=== PATIENT | male | born 1990 | race Caucasian/White ===

== ENCOUNTER 2018-06-22 16:28 | Emergency (ER) | payer BC ==
--- NOTE | 2018-06-22 16:51 | EDM.PDOC ---
ED HPI GENERAL MEDICAL PROBLEM - General Chief Complaint: Chest Pain Stated Complaint: CHEST PAIN Time Seen by Provider: 06/22/18 16:35 Source of Information: Reports: Patient, Family History Limitations: Reports: No Limitations - History of Present Illness INITIAL COMMENTS - FREE TEXT/NARRATIVE: 28 y.o.w.m - smoker- came to the ed because of SSCP, same he had in the past. His ESS was neg in the past. 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 No N/V/D no diaphoresis. 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 No other acute med issues. BP 151/71 RR 17 Pulse ox 97% on RA Pulse 71 Temp 36.6 Onset Date: 06/22/18 Onset Time: 06:00 Duration: Hour(s): Location: Reports: Face Quality: Reports: Ache, Burning Severity: Mild Improves with: Reports: Rest Worsens with: Reports: Movement Context: Reports: Other Associated Symptoms: Reports: Chest Pain, Cough Treatments BIOLOGICAL CHEMIST: Reports: Aspirin (2 full ASAs) bilateral chest Pain Score (Numeric/FACES): 9 - Related Data Allergies Allergy/AdvReac Type Severity Reaction Status Date / Time latex Allergy Hives Verified 04/04/18 19:06 Home Meds: Home Meds Lisinopril 20 mg PO DAILY 04/04/18 [History] Multivitamin [Multi-Vitamin Daily] 1 tab PO DAILY 04/04/18 [History] Ranitidine HCl [Zantac 75] 75 mg PO DAILY PRN 04/04/18 [History] Pantoprazole Sodium [Protonix] 40 mg PO DAILY #30 tablet. 06/22/18 [Rx] Past Medical History Cardiovascular History: Reports: Hypertension Social & Family History - Family History Family Medical History: Noncontributory - Caffeine Use Caffeine Use: Reports: Soda ED ROS GENERAL - Review of Systems Review Of Systems: See Below Constitutional: Reports: No Symptoms HEENT: Reports: No Symptoms Respiratory: Reports: Cough Cardiovascular: Reports: No Symptoms Endocrine: Reports: No Symptoms GI/Abdominal: Reports: No Symptoms : Reports: No Symptoms Musculoskeletal: Reports: No Symptoms Skin: Reports: No Symptoms Neurological: Reports: No Symptoms Psychiatric: Reports: No Symptoms Hematologic/Lymphatic: Reports: No Symptoms Immunologic: Reports: No Symptoms ED EXAM, GENERAL - Physical Exam Exam: See Below Exam Limited By: No Limitations General Appearance: Alert, WD/WN, Mild Distress Eye Exam: Bilateral Eye: Normal Inspection Ears: Normal External Exam Ear Exam: Bilateral Ear: Auricle Normal Nose: Normal Inspection, Normal Mucosa Throat/Mouth: Normal Inspection, Normal Lips, Normal Teeth, Normal Gums, Normal Voice, No Airway Compromise Head: Atraumatic, Normocephalic Neck: Normal Inspection, Supple, Non-Tender, Full Range of Motion Respiratory/Chest: No Respiratory Distress, Lungs Clear, No Accessory Muscle Use , Chest Non-Tender Cardiovascular: Normal Peripheral Pulses, Regular Rate, Rhythm, No Edema, No Gallop Peripheral Pulses: 1+: Brachial (R) GI/Abdominal: Normal Bowel Sounds, Soft, Non-Tender, No Organomegaly, No Distention, No Abnormal Bruit, No Mass, Pelvis Stable (Male) Exam: Deferred Rectal (Males) Exam: Deferred Back Exam: Normal Inspection, Full Range of Motion Extremities: Normal Inspection, Normal Range of Motion, Non-Tender Neurological: Alert, Oriented, CN II-XII Intact, Normal Cognition, Normal Gait Psychiatric: Normal Affect, Normal Mood Skin Exam: Warm, Dry, Intact, Normal Color, No Rash Lymphatic: No Adenopathy Course - Vital Signs Text/Narrative:: 28 y.o.w.m - smoker- came to the ed because of SSCP, same he had in the past. His ESS was neg in the past. 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 No N/V/D no diaphoresis. 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 No other acute med issues. BP 151/71 RR 17 Pulse ox 97% on RA Pulse 71 Temp 36.6 PE: WNWD muscular W M with cp when taking a deep breath Imaging: CXR Neg Labs: CBC, BMP D DIMER all neg except CR is 1.4 Impression: Atypical chest pain TxP Protronix Reexam: Improved Plan: D/C with instructions Last Recorded V/S: Last Vital Signs Temp 36.4 C 06/22/18 16:35 Pulse 73 06/22/18 16:35 Resp 17 06/22/18 16:35 BP 151/76 H 06/22/18 16:35 Pulse Ox 100 06/22/18 16:35 - Orders/Labs/Meds Orders: Active Orders 24 hr Category Date Time Status EKG Documentation Completion [RC] ASDIRECTED Care 06/22/18 17:14 Active CXR [Chest 2V] [CR] Stat Exams 06/22/18 17:03 Taken EKG 12 Lead [EK] Routine Ther 06/22/18 16:30 Ordered Labs: Laboratory Tests 06/22/18 06/22/18 06/22/18 Range/Units 16:55 16:55 16:55 WBC 6.8 (4.5-12.0) X10-3/uL RBC 4.34 (4.30-5.75) x10(6)uL Hgb 13.6 (13.5-17.8) g/dL Hct 39.7 (30.0-51.3) % MCV 91.5 (80-96) fL MCH 31.4 (27.7-33.6) pg MCHC 34.4 (32.2-35.4) g/dL RDW 12.6 (11.5-15.5) % Plt Count 266 (125-369) X10(3)uL MPV 7.7 (7.4-10.4) fL Neut % (Auto) 58.2 (46-82) % Lymph % (Auto) 30.2 (13-37) % [place] % (Auto) 7.4 (4-12) % Eos % (Auto) 4 (1.0-5.0) % Baso % (Auto) 1 (0-2) % Neut # (Auto) 3.9 (1.6-8.3) # Lymph # (Auto) 2.1 (0.6-5.0) # [place] # (Auto) 0.5 (0.0-1.3) # Eos # (Auto) 0.3 (0.0-0.8) # Baso # (Auto) 0.0 (0.0-0.2) # PT 9.9 (8.7-11.1) INR 1.02 (0.89-1.13) D-Dimer, Quantitative < 0.19 (0.0-0.59) mg/LFEU Sodium 141 (135-145) mmol/L Potassium 4.2 (3.5-5.3) mmol/L Chloride 105 (100-110) mmol/L Carbon Dioxide 27 (21-32) mmol/L BUN 14 (7-18) mg/dL Creatinine 1.4 H (0.70-1.30) mg/dL Est Cr Clr Drug Dosing TNP Estimated GFR (MDRD) 60 (>60) BUN/Creatinine Ratio 10.0 (9-20) Glucose 96 (80-116) mg/dL Calcium 8.7 (8.6-10.2) mg/dL Troponin I (<0.017-0.056) ng/mL 06/22/18 Range/Units 16:55 WBC (4.5-12.0) X10-3/uL RBC (4.30-5.75) x10(6)uL Hgb (13.5-17.8) g/dL Hct (30.0-51.3) % MCV (80-96) fL MCH (27.7-33.6) pg MCHC (32.2-35.4) g/dL RDW (11.5-15.5) % Plt Count (125-369) X10(3)uL MPV (7.4-10.4) fL Neut % (Auto) (46-82) % Lymph % (Auto) (13-37) % [place] % (Auto) (4-12) % Eos % (Auto) (1.0-5.0) % Baso % (Auto) (0-2) % Neut # (Auto) (1.6-8.3) # Lymph # (Auto) (0.6-5.0) # [place] # (Auto) (0.0-1.3) # Eos # (Auto) (0.0-0.8) # Baso # (Auto) (0.0-0.2) # PT (8.7-11.1) INR (0.89-1.13) D-Dimer, Quantitative (0.0-0.59) mg/LFEU Sodium (135-145) mmol/L Potassium (3.5-5.3) mmol/L Chloride (100-110) mmol/L Carbon Dioxide (21-32) mmol/L BUN (7-18) mg/dL Creatinine (0.70-1.30) mg/dL Est Cr Clr Drug Dosing Estimated GFR (MDRD) (>60) BUN/Creatinine Ratio (9-20) Glucose (80-116) mg/dL Calcium (8.6-10.2) mg/dL Troponin I < 0.017 L (<0.017-0.056) ng/mL Meds: Medications Discontinued Medications Generic Name Dose Route Start Last Admin Trade Name Chai PRN Reason Stop Dose Admin Pantoprazole Sodium 40 mg 06/22/18 17:40 06/22/18 17:54 Protonix PO 06/22/18 17:41 40 mg ONETIME STA Administration Departure - Departure Time of Disposition: 17:42 Disposition: Home, Self-Care 01 Condition: Good Clinical Impression: Atypical chest pain Prescriptions: Pantoprazole Sodium [Protonix] 40 mg PO DAILY #30 tablet.dr Instructions: Nonspecific Chest Pain Referrals: Lucrecia Mota CLERICAL COORDINATOR [Primary Care Provider] - Forms: ED Department Discharge Additional Instructions: Please quit tobacco use, please take Protonix as recommended, please f/u, come back if your symptoms get worse acutely - My Orders Last 24 Hours: My Active Orders 06/22/18 16:30 EKG 12 Lead [EK] Routine 06/22/18 17:03 CXR [Chest 2V] [CR] Stat 06/22/18 17:14 EKG Documentation Completion [RC] ASDIRECTED - Assessment/Plan Last 24 Hours: My Active Orders 06/22/18 16:30 EKG 12 Lead [EK] Routine 06/22/18 17:03 CXR [Chest 2V] [CR] Stat 06/22/18 17:14 EKG Documentation Completion [RC] ASDIRECTED
[2018-06-22] MEDS ORDERED: Pantoprazole 40 MG Tab.CR PO STA (17:40)
[2018-06-22 19:45] VITALS: BP 130/66
--- NOTE | 2018-06-24 11:34 | CR ---
INDICATION: Chest pain. CHEST: Two PA views and a lateral view of the chest were obtained 06/22/18 and compared with 04/04/18 and 11/29/08. Diaphragm leaves are somewhat flattened with prominent AP diameter and hyperaeration, raising question of obstructive airway disease. This should be correlated clinically. An active infiltrate or effusion was not identified. Heart, mediastinum, and bony thorax were unremarkable, except for suggestion of a minimal dextroconvex scoliosis seen previously. Overlying EKG leads are noted. IMPRESSION: 1. No definite acute process but cannot exclude exacerbation of obstructive airway disease versus slightly progressive obstructive airway disease. 2. Minimal scoliosis. MTDD
== END 2018-06-22 18:00 | disposition home or self-care (01) ==
LOC: FB.ED 16:28
DX: R07.89 Other chest pain (principal); I10 Essential (primary) hypertension; Z91.040 Latex allergy status; Z79.899 Other long term (current) drug therapy
CPT/HCPCS: 36415; 71046; 80048; 84484; 85025; 85379; 85610; 93005; 99285; A9270